=== PATIENT | male | born 1980 | race Caucasian/White ===

== ENCOUNTER 2018-03-28 17:21 | Emergency (ER) | payer OTHER ==
[~2018-03-28] VITALS: Ht 182.9 cm; Wt 75.7 kg
[2018-03-28] MEDS ORDERED: LISI-600 PO (19:19)
[2018-03-28] MEDS ORDERED: AZIT-63 PO (19:19)
[2018-03-28 23:02] VITALS: BP 178/92
== END 2018-03-28 23:04 | disposition home or self-care (01) ==
LOC: ER 17:22
DX: J20.9 Acute bronchitis, unspecified (principal); I10 Essential (primary) hypertension; Z88.8 Allergy status to other drugs, medicaments and biological substances; Z79.899 Other long term (current) drug therapy
CPT/HCPCS: 71045; 93005; 99283

== ENCOUNTER 2019-05-18 01:16 | Emergency (ER) | payer OTHER ==
[~2019-05-18] VITALS: Ht 182.9 cm; Wt 72.7 kg
[2019-05-18 01:18] VITALS: BP 153/100
[2019-05-18] MEDS ORDERED: ondansetron 4mg rapidly disintigrating tab PO ONE (01:55)
[2019-05-18] MEDS ORDERED: pantoprazole 40mg Tablet.DR PO ONE (01:55)
[2019-05-18] MEDS ORDERED: famotidine 20mg tablet PO ONE (01:55)
[2019-05-18] MEDS ORDERED: PANT-47 PO (01:56)
[2019-05-18] MEDS ORDERED: ONDA8TAB6 PO (01:56)
== END 2019-05-18 02:34 | disposition home or self-care (01) ==
LOC: ER 01:16
DX: K29.70 Gastritis, unspecified, without bleeding (principal); Z88.0 Allergy status to penicillin; Z88.8 Allergy status to other drugs, medicaments and biological substances
CPT/HCPCS: 99284

== ENCOUNTER 2020-05-13 11:41 | Emergency (ER) | payer OTHER ==
[~2020-05-13] VITALS: Ht 180.3 cm; Wt 56.8 kg
[~2020-05-13 11:41] MED LIST: ONDA8TAB6 PO; PANT-47 PO
[2020-05-13 12:28] LABS: BASOPHILS % (AUTO) 0.6 % (0-1); EOSINOPHILS # (AUTO) 0.1 X10'3 (0-0.9); EOSINOPHILS % (AUTO) 2.6 % (0-6); HEMATOCRIT 31.2 % (42.0-52.0); HEMOGLOBIN 10.4 g/dl (14.0-17.9); LYMPHOCYTES # (AUTO) 1.6 X10'3 (1.1-4.8); LYMPHOCYTES % (AUTO) 32.3 % (21-51); MEAN CORPUSCULAR HEMOGLOBIN 34.6 PG (27.0-31.0); MEAN CORPUSCULAR HGB CONC 33.4 g/dL (33.0-36.5); MEAN CORPUSCULAR VOLUME 103.6 FL (78-98); MEAN PLATELET VOLUME 8.2 FL (7.4-10.4); MONOCYTES # (AUTO) 0.7 X10'3 (0-0.9); MONOCYTES % (AUTO) 14.5 % (2-12); NEUTROPHILS # (AUTO) 2.5 X10'3 (1.8-7.7); PLATELET COUNT 271 X10'3 (140-440); RED BLOOD COUNT 3.01 X10'6 (4.70-6.10); RED CELL DISTRIBUTION WIDTH 13.1 % (11.5-14.5)
[2020-05-13 12:41] LABS: ALANINE AMINOTRANSFERASE 159 U/L (12-78); ALBUMIN 3.3 G/DL (3.4-5.0); ALBUMIN/GLOBULIN RATIO 0.9 (1.1-1.5); ALKALINE PHOSPHATASE 165 IU/L (46-116); ANION GAP 10 (8-16); ASPARTATE AMINO TRANSFERASE 111 U/L (10-37); BILIRUBIN,TOTAL 1.1 MG/DL (0.1-1.0); BLOOD UREA NITROGEN 17 MG/DL (7-18); BUN/CREATININE RATIO 19.1 (5.4-32.0); CALCIUM 9.6 MG/DL (8.5-10.1); CHLORIDE 103 MMOL/L (99-107); CREATININE 0.89 MG/DL (0.60-1.10); ETHANOL < 0.010 GM/DL (0.0-0.010); GLUCOSE 144 MG/DL (70-104); LIPASE 402 U/L (73-393); MAGNESIUM 1.7 MG/DL (1.5-2.4); POTASSIUM 3.1 MMOL/L (3.5-5.1); SODIUM 141 MMOL/L (135-145); TOTAL CARBON DIOXIDE 27.9 MMOL/L (24-32); TOTAL PROTEIN 6.9 G/DL (6.4-8.2); eGFR > 90 ML/MIN
--- NOTE | 2020-05-13 13:02 | NUR ---
ULTRASOUND AT THE BEDSIDE.
[2020-05-13 13:28] LABS: PARTIAL THROMBOPLASTIN TIME 21 SECONDS (22-32)
[2020-05-13] MEDS ORDERED: potassium Cl 20 mEq SR tablet PO STA (13:53)
[2020-05-13 14:20] VITALS: BP 99/64
== END 2020-05-13 14:23 | disposition home or self-care (01) ==
LOC: ER 11:42
DX: F10.10 Alcohol abuse, uncomplicated (principal); E87.6 Hypokalemia; R53.83 Other fatigue; R11.2 Nausea with vomiting, unspecified; R19.7 Diarrhea, unspecified; Z72.89 Other problems related to lifestyle; Z88.0 Allergy status to penicillin; Z79.899 Other long term (current) drug therapy; Y90.5 Blood alcohol level of 100-119 mg/100 ml; Z86.16 Personal history of COVID-19
CPT/HCPCS: 36415; 76700; 80053; 80320; 83690; 83735; 85025; 85610; 85730; 99284